=== PATIENT | male | born 1950 | race Caucasian/White ===

== ENCOUNTER 2023-01-12 20:52 | Emergency (ER) | payer MEDICARE, SELFPAY ==
[2023-01-12 20:52] VITALS: BP 133/68; PULSE 70; RESP 17; TEMP 36.4; O2SAT 99; BMI 27.4
[2023-01-12 21:34] LABS: Basophils # 0.1 K/mm3 (0-0.2); Basophils % 1.9 % (0.1-2.0); Eosinophils # 0.4 K/mm3 (0.0-0.4); Hematocrit 33.9 % (42.0-52.0); Hemoglobin 11.4 g/dL (14.1-18.0); Lymphocytes # 1.9 K/mm3 (0.7-4.5); Lymphocytes % 25.6 % (10-50); Mean Corpuscular HGB Conc 33.7 g/dL (31.8-35.4); Mean Corpuscular Hemoglobin 32.1 pg (27.0-31.2); Mean Corpuscular Volume 95.2 fl (80-94); Monocytes # 0.4 K/mm3 (0.1-1.0); Monocytes % 5.9 % (1.7-9.3); Neutrophils # 4.7 K/mm3 (1.8-7.8); Neutrophils % 61.6 % (37.0-80.0); Platelet Count 373 K/mm3 (142-424); Red Blood Count 3.56 M/mm3 (4.60-6.20); Red Cell Distribution Width 13.1 % (11.5-17.5); White Blood Count 7.6 K/mm3 (4.8-10.8)
[2023-01-12 21:36] LABS: Chloride 98 mmol/L (98-107); Potassium 4.1 mmoL/L (3.5-5.1); Sodium 135 mmol/L (136-145)
[2023-01-12 21:38] VITALS: BP 145/69; PULSE 69; O2SAT 98
[2023-01-12 21:39] LABS: Alanine Aminotransferase 18 U/L (12-78); Albumin Level 3.8 g/dl (3.5-5.0); Albumin/Globulin Ratio 1.3 (1.1-1.8); Alkaline Phosphatase 118 U/L (38-126); Anion Gap 15.1 mEq/L (5-15); Aspartate Amino Transferase 44 U/L (17-59); Bilirubin,Total 0.8 mg/dl (0.2-1.3); Blood Urea Nitrogen 13 mg/dl (9-20); Carbon Dioxide 26 mmol/L (22.0-30.0); Creatinine Clearance Estimated 74 mL/min (50-200); Estimated Glomerular Filt Rate 111 ml/min (>60); GFR (African American) 135 ML/MIN (>60); Globulin 2.9 g/dL (1.3-3.2); Total Protein,Serum 6.7 g/dl (6.3-8.2)
--- NOTE | 2023-01-12 21:39 | PC.NURSE ---
Dr. Moran at [facility] to suture
[2023-01-12 21:40] LABS: Calcium 8.6 mg/dl (8.4-10.2); Ethyl Alcohol 106 mg/dl (0-10); Glucose 380 mg/dl (74-100)
--- NOTE | 2023-01-12 21:57 | HMH.EDWNDL ---
Discharge Plan Disposition Chief Complaint: Wound/Laceration Prescriptions Prescriptions: No Action carvedilol [Coreg] 6.25 mg Tablet 6.25 mg PO BID Rx Instructions: must administer with a meal/food lisinopril-hydrochlorothiazide 20-12.5 mg Tablet 1 tab PO DAILY carbidopa-levodopa [Sinemet CR] 50-200 mg Tablet Extended Release 1 tab PO TID Rx Instructions: divide evenly over waking hours aspirin [Aspir-81] 81 mg Tablet,Delayed Release (Dr/Ec) 81 mg PO DAILY venlafaxine [Effexor] 37.5 mg Tablet 37.5 mg PO DAILY pramipexole 0.125 mg Tablet 0.25 mg PO TID omeprazole 20 mg Capsule,Delayed Release(Dr/Ec) 20 mg PO DAILY insulin aspart U-100 [Novolog FlexPen U-100 Insulin] 100 unit/mL (3 mL) Insulin Pen See Protocol SQ BID Protocol: Insulin Corrective Med-Dose Regimen Condition: Fingerstick Blood Glucose Dose/Route: Insulin Units Condition: 151-200 mg/dl Dose/Route: 2 units/SQ Condition: 201-250 mg/dl Dose/Route: 5 units/SQ Condition: 251-300 mg/dl Dose/Route: 8 units/SQ Condition: 301-350 mg/dl Dose/Route: 10 units/SQ Condition: 351-400 mg/dl Dose/Route: 12 units/SQ Condition: 401-450 mg/dl Dose/Route: 15 units/SQ Condition: > 450 mg/dl Dose/Route: CALL MD Protocol Text: Medium Intensity Sliding Scale Insulin Levemir FlexPen 100 unit/mL (3 mL) Insulin Pen 20 unit SQ BID Brilinta 90 mg Tablet 90 mg PO BID Clinical Impressions Clinical Impression: Finger laceration Instructions Patient Instructions: DI for Laceration Repair Discharge ED Provider: Dean (ED)Juan Wound/Laceration HPI General Chief Complaint: Wound/Laceration Stated Complaint: Hand Laceration Time Seen by Provider: 01/12/23 21:57 Mode of Arrival: EMS Source of Information: Patient, Relative and EMS Limitations: Altered Mental Status Description of Symptoms (Recalled from ER Triage Doc. by RN): Pt c/o cutting his left index finger with a pocket knife when he was attempting to cut up hotdogs. He reports to taking a Brillinta & Aspirin 81mg. Bleeding controlled with pressure dressing applied by EMS. History of Present Illness HPI narrative: lac lt index finger at home with knife - on asa and brillinta Onset (ago): hour(s) Extremity Location: Left: hand Place: home Patient tetanus UTD: No Context: sharp object use Associated symptoms: none Related Data Home Medications Medication Instructions Recorded Confirmed aspirin 81 mg tablet,delayed 81 mg PO DAILY CAD 01/12/23 01/12/23 release carbidopa ER 50 mg-levodopa 200 mg 1 tab PO TID parkinson 01/12/23 01/12/23 tablet,extended release carvedilol 6.25 mg tablet (Coreg) 6.25 mg PO BID High blood pressure 01/12/23 01/12/23 insulin aspart U-100 100 unit/mL See Protocol SQ BID Diabetes 01/12/23 01/12/23 (3 mL) subcutaneous pen (Novolog FlexPen U-100 Insulin aspart) insulin detemir U-100 100 unit/mL 20 unit SQ BID Diabetes 01/12/23 01/12/23 (3 mL) subcutaneous pen (Levemir FlexPen) lisinopril 20 1 tab PO DAILY High blood pressure 01/12/23 01/12/23 mg-hydrochlorothiazide 12.5 mg tablet omeprazole 20 mg capsule,delayed 20 mg PO DAILY GERD 01/12/23 01/12/23 release pramipexole 0.125 mg tablet 0.25 mg PO TID parkinson 01/12/23 01/12/23 ticagrelor 90 mg tablet (Brilinta) 90 mg PO BID CAD 01/12/23 01/12/23 venlafaxine 37.5 mg tablet 37.5 mg PO DAILY Anxiety 01/12/23 01/12/23 Allergies Allergy/AdvReac Type Severity Reaction Status Date / Time paroxetine [From Paxil] AdvReac Verified 01/12/23 20:54 [facility] Disclaimer: The information contained in this section may have been updated after the patient was seen, as this information can be updated by other users. Medical History (Updated 01/12/23 @ 22:07 by Juan Moran (ED)MD) CAD (coronary artery disease) Dementia Diabetes High blood pressure High cholesterol Parkinson disease Surgi
--- NOTE | 2023-01-12 22:04 | PC.NURSE ---
Called patients daughter to gather information for patients care. Patient does not know his address due to a recent relocation. Daughter provided address and phone number for patient. Updated registration on this information.
[2023-01-12 23:04] VITALS: BP 118/72; PULSE 85; RESP 17; TEMP 36.8; O2SAT 98
== END 2023-01-12 23:07 | disposition home or self-care (01) ==
LOC: ER 22:12
PROVIDERS: Emergency Provider Emergency Medicine; PCP Family Medicine
DX: S61.211A Laceration without foreign body of left index finger without damage to nail, initial encounter (principal); I25.10 Atherosclerotic heart disease of native coronary artery without angina pectoris; F03.90 Unspecified dementia, unspecified severity, without behavioral disturbance, psychotic disturbance, mood disturbance, and anxiety; E11.9 Type 2 diabetes mellitus without complications; I10 Essential (primary) hypertension; E78.5 Hyperlipidemia, unspecified; G20 Parkinson's disease; F17.210 Nicotine dependence, cigarettes, uncomplicated; W26.0XXA Contact with knife, initial encounter; Z95.1 Presence of aortocoronary bypass graft; Z23 Encounter for immunization
CPT/HCPCS: 12002; 80053; 85025; 90471; 90715; 96360; 99285

== ENCOUNTER 2023-01-21 10:00 | Emergency (ER) | payer MEDICARE, SELFPAY ==
[2023-01-21 10:18] VITALS: BMI 24.5
[2023-01-21 10:19] VITALS: BP 118/69; PULSE 78; RESP 20; TEMP 36.8; O2SAT 97; BMI 24.5
[2023-01-21 10:21] VITALS: BP 118/69; PULSE 78; RESP 20; TEMP 36.8; O2SAT 97
== END 2023-01-21 10:21 | disposition home or self-care (01) ==
LOC: UTC 10:06
PROVIDERS: Emergency Provider Physician Assistant
DX: S61.211A Laceration without foreign body of left index finger without damage to nail, initial encounter (principal); Z48.02 Encounter for removal of sutures